=== PATIENT | female | born 1985 | race Caucasian/White ===

== ENCOUNTER 2017-12-06 11:24 | Emergency (ER) | payer MEDICAID ==
[~2017-12-06] VITALS: Ht 152.4 cm; Wt 55.3 kg
[2017-12-06 11:32] VITALS: BP_SYST 124
--- NOTE | 2017-12-06 11:54 | NUR ---
Patient to ER bed 04 to gown for evaluation. Side rails up.
--- NOTE | 2017-12-06 12:00 | NUR ---
ER at bedside examining patient.
--- NOTE | 2017-12-06 12:15 | NUR ---
Pt complains of cough, congestion, fever, nausea and body aches since Saturday. Pt denies vomiting or diarrhea. Pt states fever has been off and on for the past 5 days. No other injuries/complaints per pt or noted.
[2017-12-06 12:26] VITALS: BP_SYST 120
--- NOTE | 2017-12-06 12:26 | NUR ---
Patient given written and verbal discharge instructions and verbalizes understanding. ER MD discussed with patient the results and treatment provided. Patient in stable condition. ID arm band removed. Rx of albuterol, motrin and augmentin given. Patient educated on pain management and to follow up with PMD. Pain Scale 2. Opportunity for questions provided and answered.
== END 2017-12-06 12:26 | disposition home or self-care (01) ==
LOC: SED 11:24
DX: J40 Bronchitis, not specified as acute or chronic (principal)
CPT/HCPCS: 71046-TC; 81025; 99284

== ENCOUNTER 2018-10-10 13:05 | Emergency (ER) | payer MEDICAID ==
[~2018-10-10] VITALS: Ht 152.4 cm; Wt 59.0 kg
[2018-10-10 13:20] VITALS: BP_SYST 152
--- NOTE | 2018-10-10 13:24 | NUR ---
Pt states that she's not and isn't worried about it. Consent for chest XR w/o test recieved.
--- NOTE | 2018-10-10 13:24 | NUR ---
Patient triaged and placed in waiting room. VSS and patient appears in no acute distress at this time. Accompanied by mother, awaiting available bed, and MD notified of need for MSE.
--- NOTE | 2018-10-10 14:15 | NUR ---
Ambualtory to bed 5 Addendum: 10/10/18 at 1416 by [facility] TO [facility] BED 1
--- NOTE | 2018-10-10 14:16 | NUR ---
ER Dr. Hurtado at bedside examining patient.
--- NOTE | 2018-10-10 14:21 | NUR ---
Patient given written and verbal discharge instructions by Dr. Hurtado and verbalizes understanding. ER MD discussed with patient the results and treatment provided. Patient in stable condition. ID arm band removed. Rx of augmentin, promethazine given. Patient educated on pain management and to follow up with PMD. Pain Scale 0/10. Opportunity for questions provided and answered. Medication side effect fact sheet provided.
[2018-10-10 14:22] VITALS: BP_SYST 144
== END 2018-10-10 14:21 | disposition home or self-care (01) ==
LOC: SED 13:05
DX: J20.9 Acute bronchitis, unspecified (principal); R03.0 Elevated blood-pressure reading, without diagnosis of hypertension
CPT/HCPCS: 71045; 99283

== ENCOUNTER 2023-11-07 22:34 | Emergency (ER) | payer MEDICAID ==
[2023-11-07 22:50] VITALS: BP_SYST 151; PULSE 95; RESP 18; TEMP 98; O2SAT 98
[2023-11-07] MEDS ORDERED: LIDOCAINE 1%, 20 ML MDV 20 ML ONE (23:06)
[2023-11-07] MEDS ORDERED: LIDOCAINE 2%, 20 ML MDV INJ ONE (23:15)
[2023-11-07] MEDS ORDERED: DIPHTH,PERTUSS(ACELL),TET VAC 0.5 ML VIAL (Tdap) I.M. ONE (23:30)
[2023-11-07 23:35] VITALS: BP_SYST 151; PULSE 95; RESP 18; TEMP 98; O2SAT 98
== END 2023-11-07 23:30 | disposition home or self-care (01) ==
LOC: SED 22:34
DX: S61.213A Laceration without foreign body of left middle finger without damage to nail, initial encounter (principal); Z79.899 Other long term (current) drug therapy; W26.8XXA Contact with other sharp object(s), not elsewhere classified, initial encounter; Y93.89 Activity, other specified; Y92.89 Other specified places as the place of occurrence of the external cause; Y99.8 Other external cause status
CPT/HCPCS: 99283; 90715; 90471; 12002; J2001 ×2

== ENCOUNTER 2023-11-15 07:22 | Emergency (ER) | payer MEDICAID ==
[~2023-11-15] VITALS: Ht 152.4 cm; Wt 56.7 kg
[2023-11-15 07:35] VITALS: BP_SYST 142; PULSE 85; RESP 18; TEMP 98.3; O2SAT 98
[2023-11-15 07:48] VITALS: BP_SYST 142; PULSE 85; RESP 18; TEMP 98.3; O2SAT 98
== END 2023-11-15 07:49 | disposition home or self-care (01) ==
LOC: SED 07:22
DX: Z48.00 Encounter for change or removal of nonsurgical wound dressing (principal); Z48.02 Encounter for removal of sutures; Z91.010 Allergy to peanuts; Z79.899 Other long term (current) drug therapy
CPT/HCPCS: 99281